=== PATIENT | female | born 1965 | race Caucasian/White ===

== ENCOUNTER → 2024-01-09 | Outpatient (CLI) | payer OTHER ==
[~2024-01-09] MED LIST: REGADENOSON 0.4 MG/5 ML SYRINGE IV PRN
--- NOTE | 2024-01-09 12:26 | NM ---
EXAMINATION TYPE: NM stress lexiscan cardiolite DATE OF EXAM: 01/09/2024 COMPARISON: NONE CLINICAL INDICATION: Female, 58 years old with history of R94.131 ABNORMAL ELECTROMYOGRAM [EMG]; TECHNIQUE: After the intravenous administration of 9.81 mCi Tc 99m Sestamibi - Cardiolite resting SP ECT images acquired 45 minutes post injection. The patient received 0.4mg Lexiscan, 26.3 mCi Tc 99m Sestamibi - Stress images obtained [address] injection FINDINGS: Review of stress and rest SPECT images demonstrates a small fixed defect at the apex of the heart, no t corroborated on polar maps. This favors attenuation artifact. No suspicious reversibility is seen. Gated analysis shows normal wall motion with an estimated left ventricular ejection fraction of 62 %. TID is calculated as 0.78, within normal limits. IMPRESSION: No scintigraphic evidence for reversible ischemia.
--- NOTE | 2024-01-09 13:38 | CA ---
Lexiscan Nuclear Stress Test Report Name: Pam Hairston Exam Date: 01/09/2024 10:25 Exam Location: [place] Stress Ht (in): 63 Wt (lb): 292 BSA: 2.27 Ordering Phys: Lowell Becerra DO Referring Phys: Nikky Sykes [facility] [place] Technologist: Shiv Mayer Age: 58 Gender: F : 1965 Procedure CPT: Indications: R94.131 ABNORMAL ELECTROMYOGRAM [EMG] ICD-10 Codes: Patient History: PALPITATIONS, HTN, DIABETES, ELEVATED CHOLESTEROL LEVELS, FAMILY HX OF HEART DISEASE, PRIOR SMOKER, ASTHMA, PRIOR CARDIAC CATH Medications: ATORVASTATIN,,,, POTASSIUM,,,, METFORMIN,,,, HZTZ,,,, AMLODIPINE,,,, METOPROLOL,,,, ESCITALOPRAM,,, Meds past 24 hrs: Pretest Chest Pain: STRESS TEST Lexiscan Protocol Exercise Duration (min:sec): 01:[address] Depressions (mm): Angina Score: Morillo Score: Resting HR (bpm): 65 Peak HR (bpm): 83 Resting BP (mmHg): 146 / 90 Peak BP (mmHg): 153 / 81 MPHR: 164 Target HR: 139 % MPHR: 51 METS: 1.0 Total Dose: Peak Dose: Atropine: Double Product: 97199 BP Response: Stress Termination: INFUSION COMPLETE Stress Symptoms: HEADACHE Stress Summary: ECG ANALYSIS Resting ECG: Sinus rhythm. Normal conduction. No arrhythmias. Normal repolarization. Stress ECG: No ECG changes from baseline with Lexiscan infusion. CONCLUSIONS No ECG evidence of ischemia with Lexiscan infusion. Nuclear test results to follow. Dr. Lit Arshad MD (Electronically Signed) Final Date: 09 Jan 2024 13:38
== END | disposition home or self-care (01) ==
LOC: RADNMMAIN 08:02
PROVIDERS: ATTEND Family Medicine
DX: R94.31 Abnormal electrocardiogram [ECG] [EKG] (principal); R94.131 Abnormal electromyogram [EMG]; I10 Essential (primary) hypertension; E11.9 Type 2 diabetes mellitus without complications; E78.00 Pure hypercholesterolemia, unspecified; J45.909 Unspecified asthma, uncomplicated; Z87.891 Personal history of nicotine dependence; R00.2 Palpitations
CPT/HCPCS: 93017; 78452; A9500; J2785